=== PATIENT | male | born 1955 | race Caucasian/White ===

== ENCOUNTER → 2016-10-31 | Outpatient (CLI) | payer OTHER ==
--- NOTE | 2016-10-31 14:52 | EKG ---
[address] [address] Measurements Intervals [place] Rate: 68 P: 67 [place]: 173 QRS: 82 QRSD: 93 T: 76 QT: 380 QTc: 397 Interpretive Statements SINUS RHYTHM Compared to ECG 12/27/2015 14:23:36 No significant changes Electronically Signed On 10-31-16 17:05:05 MST by Ry Bañuelos [email or web address]
[2016-10-31 16:22] LABS: ASPARTATE AMINO TRANSFERASE 25 IU/L (21-57); BILIRUBIN,TOTAL 0.5 mg/dL (0.3-1.2); BLOOD UREA NITROGEN 15 mg/dL (7-22); CALCIUM 9.3 mg/dL (8.7-10.7); CHLORIDE 108 meq/L (98-112); EST GLOMERULAR FILTRATION > 60 (>60 ml/min/1.73m(2)); GLUCOSE 98 mg/dL (78-110); POTASSIUM 4.4 meq/L (3.8-5.2); SODIUM 143 meq/L (135-145); TOTAL PROTEIN 8.5 g/dL (6.1-8.0)
[2016-10-31 16:34] LABS: BASOPHILS # (AUTO) 0.01 10*3/UL; BASOPHILS % (AUTO) 0.4 % (0-1); EOSINOPHILS % (AUTO) 3.7 % (0-8); HEMATOCRIT 39.8 % (42.0-52.0); IMM GRAN % (AUTO) 0.4 % (0-5); IMM GRAN# (AUTO) 0.01 10*3/UL; LYMPHOCYTES # (AUTO) 1.34 10*3/uL; LYMPHOCYTES % (AUTO) 54.7 % (10-50); MEAN CORPUSCULAR HEMOGLOBIN 31.7 PG (27-31); MEAN CORPUSCULAR HGB CONC 32.7 g/dL (33-37); MEAN PLATELET VOLUME 9.1 FL (7.4-12.2); MONOCYTES # (AUTO) 0.19 10*3/UL (0.3-0.8); MONOCYTES % (AUTO) 7.8 % (5-15); NEUTROPHILS # (AUTO) 0.81 10*3/UL; RDW COEFFICIENT OF VARIATION 16.2 % (11.5-14.5); WHITE BLOOD COUNT 2.45 10^3/uL (4.8-10.8)
[2016-10-31 17:37] LABS: PLATELET MORPHOLOGY COMMENT NORMAL MORPHOLOGY (NORM)
== END ==
LOC: MOB LAB 14:37
PROVIDERS: ATTEND Physician Assistant Medical
DX: Z01.810 Encounter for preprocedural cardiovascular examination (principal); R71.8 Other abnormality of red blood cells; H26.8 Other specified cataract; D70.9 Neutropenia, unspecified; Z87.891 Personal history of nicotine dependence
CPT/HCPCS: 36415; 80053; 82607; 82746; 84443; 85025; 93005; 93010

== ENCOUNTER → 2016-11-10 | Outpatient (CLI) | payer OTHER ==
[2016-11-10 14:12] LABS: EOSINOPHILS # (AUTO) 0.05 10*3/UL; LYMPHOCYTES # (AUTO) 1.22 10*3/uL
[2016-11-10 14:28] LABS: PLATELET MORPHOLOGY COMMENT NORMAL MORPHOLOGY (NORM); RBC MORPHOLOGY COMMENT NORMAL MORPHOLOGY (NORM); WBC MORPHOLOGY COMMENT NORMAL MORPHOLOGY (NORM)
[2016-11-10 14:31] LABS: BASOPHILS # (AUTO) 0.02 10*3/UL; BASOPHILS % (AUTO) 0.8 % (0-1); HEMATOCRIT 42.9 % (42.0-52.0); HEMOGLOBIN 14.2 g/dL (14.0-18.0); MEAN CORPUSCULAR HGB CONC 33.1 g/dL (33-37); MEAN PLATELET VOLUME 9.1 FL (7.4-12.2); MONOCYTES # (AUTO) 0.24 10*3/UL (0.3-0.8); MONOCYTES % (AUTO) 9.4 % (5-15); NEUTROPHILS # (AUTO) 1.01 10*3/UL; NEUTROPHILS % (AUTO) 39.6 % (50-80); RED BLOOD COUNT 4.44 10^6/uL (4.70-6.10)
[2016-11-10 14:46] LABS: BLOOD UREA NITROGEN 20 mg/dL (7-22); CALCIUM 9.5 mg/dL (8.7-10.7); EST GLOMERULAR FILTRATION > 60 (>60 ml/min/1.73m(2)); SERUM ALBUMIN 3.9 g/dL (3.5-4.8)
[2016-11-14 13:27] LABS: KAPPA FREE LIGHT CHAINS 17.9 mg/dL (()); KAPPA/LAMBDA FLC RATIO 2.84 (()); LAMBDA FREE LIGHT CHAINS 6.31 mg/dL (())
[2016-11-14 13:36] LABS: A/G RATIO 0.54 (()); ALP1 GLOB 0.3 g/dL (0.1-0.3); GAMMA GLOBS 3.3 g/dL (0.6-1.6)
== END ==
LOC: LAB 13:51
PROVIDERS: ATTEND Internal Medicine
DX: D64.9 Anemia, unspecified (principal); R74.8 Abnormal levels of other serum enzymes
CPT/HCPCS: 80053; 83615; 83883; 84155; 84165; 85025; 85045

== ENCOUNTER → 2016-12-15 | Outpatient (CLI) | payer OTHER ==
[2016-12-15 15:37] LABS: BLOOD UREA NITROGEN 17 mg/dL (7-22); BUN/CREATININE RATIO 14.16 (6-20); C-REACTIVE PROTEIN 2.2 mg/dL (0.0-0.9); CALCIUM 8.9 mg/dL (8.7-10.7); EST GLOMERULAR FILTRATION > 60 (>60 ml/min/1.73m(2)); SERUM ALBUMIN 3.6 g/dL (3.5-4.8)
[2016-12-15 15:43] LABS: HEMATOCRIT 36.5 % (42.0-52.0); HEMOGLOBIN 12.2 g/dL (14.0-18.0); MEAN CORPUSCULAR HEMOGLOBIN 31.9 PG (27-31); MEAN CORPUSCULAR HGB CONC 33.4 g/dL (33-37); MEAN CORPUSCULAR VOLUME 95.3 FL (80-90); RED BLOOD COUNT 3.83 10^6/uL (4.70-6.10)
[2016-12-15 16:14] LABS: PLATELET MORPHOLOGY COMMENT NORMAL MORPHOLOGY (NORM); RBC MORPHOLOGY COMMENT NORMAL MORPHOLOGY (NORM); WBC MORPHOLOGY COMMENT NORMAL MORPHOLOGY (NORM)
[2016-12-15 16:25] LABS: BAND NEUTROPHILS % 0 % (0-10); BASOPHILS % (MANUAL) 0 % (0-1); EOSINOPHILS % (MANUAL) 5 % (0-8); ERYTHROCYTE SEDIMENTATION RATE 81 MM/HR (0-15); LYMPHOCYTES % (MANUAL) 67 % (10-50); METAMYELOCYTES % 0 %; MONOCYTES % (MANUAL) 21 % (0-12); NEUTROPHILS % (MANUAL) 7 % (50-80)
== END ==
LOC: LAB 13:37
PROVIDERS: ATTEND Internal Medicine
DX: D64.9 Anemia, unspecified (principal)
CPT/HCPCS: 36415; 80053; 82607; 83615; 85007; 85045; 85652; 86140